=== PATIENT | male | born 1940 | race Caucasian/White ===

== ENCOUNTER 2021-05-06 09:21 | Day surgery (SDC) | payer OTHER, BC ==
[2021-05-06 13:17] VITALS: TEMP 97.4
[2021-05-06 13:22] VITALS: BP 120/78; PULSE 78
== END 2021-05-06 13:30 | disposition home or self-care (01) ==
LOC: FASU 09:21
PROVIDERS: ATTEND Ophthalmology
PROC: 08RJ3JZ Replacement of Right Lens with Synthetic Substitute, Percutaneous Approach (ICD-10-PCS; principal; 2021-05-06)
DX: H26.8 Other specified cataract (principal)
CPT/HCPCS: J1097

== ENCOUNTER 2021-06-24 08:02 | Day surgery (SDC) | payer OTHER, BC ==
[2021-06-19 09:53] VITALS: BMI 25.8
[2021-06-24] MEDS: CYCLOPENTOLATE 2% OPHTH SOLN 2 ML BOTTLE ONE ×3 (08:25→08:35)
[2021-06-24] MEDS: TROPICAMIDE 1% OPHTH SOLN 15 ML BOTTLE ONE ×3 (08:25→08:35)
[2021-06-24] MEDS: CIPROFLOXACIN 0.3% EYE DROPS 5 ML BOTTLE ONE ×3 (08:25→08:35)
[2021-06-24] MEDS: PHENYLEPHRINE 2.5% OPHTH SOLN 15 ML BOTTLE ONE ×3 (08:25→08:35)
[2021-06-24] MEDS ORDERED: LIDOCAINE 1% P/F 10 MG/ML VIAL ONE (09:51)
[2021-06-24] MEDS ORDERED: BSS (NA/CA/MG/K) BALANCED SALT SOLUTION OPHTH SOLN 15 ML BOTTLE ONE (09:52)
[2021-06-24] MEDS ORDERED: TETRACAINE 0.5% OPHTH SOLN 2 ML BOTTLE ONE (09:52)
[2021-06-24] MEDS ORDERED: NEO/POLYMYX B SULF/DEXAMETH OPHTHALMIC 5ML BOTTLE ONE (09:52)
[2021-06-24] MEDS ORDERED: CARBACHOL 0.01% INTRA-OCULAR 1.5 ML VIAL ONE (09:52)
[2021-06-24] MEDS ORDERED: MIDAZOLAM HCL 2 MG/2 ML SINGLE DOSE VIAL ONE (10:02)
[2021-06-24 10:32] VITALS: TEMP 97.9
[2021-06-24 10:54] VITALS: BP 110/64; PULSE 61
== END 2021-06-24 11:00 | disposition home or self-care (01) ==
LOC: FASU 08:02
PROVIDERS: ATTEND Ophthalmology
PROC: 08RK3JZ Replacement of Left Lens with Synthetic Substitute, Percutaneous Approach (ICD-10-PCS; principal; 2021-06-24 10:06)
DX: H26.8 Other specified cataract (principal)